=== PATIENT | female | born 1955 | race Caucasian/White ===

== ENCOUNTER 2016-03-30 15:37 | Outpatient (CLI) | payer OTHER ==
[2016-03-30 16:08] LABS: BASOPHILS % 0.5 (0.0-1.5); EOSINOPHILS % 4.8 % (0.0-6.8); LYMPHOCYTES # 2.1 # k/uL (0.6-4.0); MEAN CORPUSCULAR HEMOGLOBIN 27.5 pg (28.0-34.0); MONOCYTES # 0.5 # k/uL (0.0-0.9); MONOCYTES % 6.1 % (0.0-11.0); NEUTROPHILS # 4.8 # k/uL (1.4-7.7)
[2016-03-30 16:31] LABS: eGFR (African) > 60; eGFR (Non-African) > 60
== END 2016-03-30 15:40 ==
LOC: LAB 15:37
PROVIDERS: ATTEND Internal Medicine Endocrinology, Diabetes & Metabolism
DX: E11.9 Type 2 diabetes mellitus without complications (principal)
CPT/HCPCS: 36415; 80053; 80061; 82043; 83036; 84443; 85025

== ENCOUNTER 2016-06-02 16:36 | Outpatient (CLI) | payer OTHER | END 2016-06-02 16:37 | LOC: LAB 16:36 | PROVIDERS: ATTEND Nurse Practitioner Family | DX: R19.4 Change in bowel habit (principal) | CPT/HCPCS: 82270; 87045; 87046; 87177; 87209; 87427; 87493; 89055 ==

== ENCOUNTER 2016-07-13 07:01 | Outpatient (CLI) | payer OTHER ==
[2016-07-13 07:24] LABS: BASOPHILS % 0.4 (0.0-1.5); EOSINOPHILS % 4.7 % (0.0-6.8); MEAN CORPUSCULAR VOLUME 85.3 fl (80.0-100.0); NEUTROPHILS # 3.8 # k/uL (1.4-7.7)
[2016-07-13 08:02] LABS: eGFR (African) > 60; eGFR (Non-African) > 60
== END 2016-07-13 07:02 ==
LOC: LAB 07:01
PROVIDERS: ATTEND Internal Medicine Endocrinology, Diabetes & Metabolism
DX: E11.9 Type 2 diabetes mellitus without complications (principal)
CPT/HCPCS: 36415; 80053; 80061; 82043; 83036; 84439; 84443; 85025

== ENCOUNTER 2016-10-13 13:04 | Outpatient (CLI) | payer OTHER ==
[2016-10-13 13:55] LABS: eGFR (African) > 60; eGFR (Non-African) > 60
== END 2016-10-13 13:05 ==
LOC: LAB 13:04
PROVIDERS: ATTEND Internal Medicine Endocrinology, Diabetes & Metabolism
DX: E11.8 Type 2 diabetes mellitus with unspecified complications (principal); Z79.4 Long term (current) use of insulin
CPT/HCPCS: 36415; 80053; 80061; 84443

== ENCOUNTER 2017-01-19 12:25 | Outpatient (CLI) | payer OTHER ==
[2017-01-19 12:47] LABS: BASOPHILS % 0.6 (0.0-1.5); EOSINOPHILS % 3.6 % (0.0-6.8); MEAN CORPUSCULAR HEMOGLOBIN 28.5 pg (28.0-34.0); MONOCYTES % 4.2 % (0.0-11.0); NEUTROPHILS # 4.9 # k/uL (1.4-7.7)
[2017-01-19 13:33] LABS: eGFR (African) > 60; eGFR (Non-African) > 60
== END 2017-01-19 12:26 ==
LOC: LAB 12:25
PROVIDERS: ATTEND Internal Medicine Endocrinology, Diabetes & Metabolism
DX: E11.9 Type 2 diabetes mellitus without complications (principal)
CPT/HCPCS: 36415; 80053; 80061; 83036; 84439; 84443; 85025

== ENCOUNTER 2017-06-29 13:22 | Outpatient (CLI) | payer OTHER | END 2017-06-29 14:53 | LOC: LAB 13:22 | PROVIDERS: ATTEND Internal Medicine Endocrinology, Diabetes & Metabolism | DX: E11.8 Type 2 diabetes mellitus with unspecified complications (principal); Z79.4 Long term (current) use of insulin | CPT/HCPCS: 36415; 80061; 83036; 84443 ==

== ENCOUNTER 2018-10-02 13:46 | Outpatient (CLI) | payer OTHER ==
--- NOTE | 2018-10-02 14:48 | Diagnostic Imaging Report ---
FABIÁN VILLARREAL [facility] [address] [facility] [address] [place] [id number]. [id number] Report Submission Date: Oct 02, 2018 2:43:59 PM CDT Patient Study Name: EMELY ALVAREZ Date: Oct 02, 2018 1:50:18 PM CDT Modality Type: DX Gender: F Description: ANKLE 3 VIEWS OR MORE : 53 Institution: [facility] Physician: FABIÁN VILLARREAL Exam: Right ankle. History: Pain. AP, lateral and mortise view of the right ankle are submitted. A cystic structure at the lateral malleolus is identified. No other signs of fracture or dislocation is seen. Soft tissue swelling about the ankle is noted. Spur off the plantar and posterior surfaces of the calcaneus are noted. Impression: Cystic structure noted at the lateral malleolus. Soft tissue swelling. Electronically signed on Oct 02, 2018 2:43:59 PM CDT by: Venkat LOW
--- NOTE | 2018-10-02 14:54 | Diagnostic Imaging Report ---
FABIÁN VILLARREAL [facility] [address] [facility] [address] [place] [address]. [id number] Report Submission Date: Oct 02, 2018 2:51:19 PM CDT Patient Study Name: EMELY ALVAREZ Date: Oct 02, 2018 1:50:18 PM CDT Modality Type: DX Gender: F Description: FOOT 3 VIEWS OR MORE : 53 Institution: [facility] Physician: FABIÁN VILLARREAL Exam: Right foot. History: Pain. AP, lateral and oblique view of the right foot are submitted. 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 No signs of acute fracture or dislocations are identified. Spurs off the plantar and posterior surfaces of the calcaneus are noted. Impression: No acute fracture. Heel spurs. Electronically signed on Oct 02, 2018 2:51:19 PM CDT by: Venkat LOW
== END 2018-10-02 13:48 ==
LOC: RAD 13:46
PROVIDERS: ATTEND Podiatrist Foot & Ankle Surgery
DX: M79.671 Pain in right foot (principal); M25.571 Pain in right ankle and joints of right foot
CPT/HCPCS: 73610; 73630